=== PATIENT | female | born 1995 | race Caucasian/White ===

== ENCOUNTER 2020-08-11 11:22 | Outpatient (CLI) | payer BC, SELFPAY ==
--- NOTE | ~2020-08-11 | US_ITS ---
EXAMINATION: US pelvic complete DATE: 08/11/2020 15:04 INDICATION: Polycystic ovarian syndrome TECHNIQUE: Multiple transabdominal sonographic images of the pelvis were obtained. COMPARISON: None. FINDINGS: The uterus measures 7.7 x 4.5 x 3.3 cm. The endometrial complex measures 4 mm. The right ov jessica measures 3.1 x 1.8 x 2 cm. The left ovary measures 3.7 x 2.1 x 1.6 cm. A few tiny follicles are n oted in the ovaries.. There is normal vascular flow in the ovaries. There is no free fluid in the pel vis. IMPRESSION: 1. No sonographic correlate for the patient's symptoms. Reviewed, dictated and finalized at location [facility]
== END 2020-08-11 11:23 | disposition home or self-care (01) ==
PROVIDERS: PCP Chiropractor; Visit Provider Chiropractor
DX: E28.2 Polycystic ovarian syndrome (principal)
CPT/HCPCS: 76856